=== PATIENT | female | born 1990 | race Caucasian/White ===

== ENCOUNTER 2021-12-06 09:05 | Outpatient (RCR) | payer OTHER | END 2021-12-07 | LOC: M PT 09:05 | PROVIDERS: ATTEND Student in an Organized Health Care Education/Training Program | DX: M25.511 Pain in right shoulder (principal) ==

== ENCOUNTER 2022-01-03 09:12 | Outpatient (RCR) | payer OTHER | END 2022-01-07 | LOC: M PT 09:12 | PROVIDERS: ATTEND Student in an Organized Health Care Education/Training Program | DX: M25.511 Pain in right shoulder (principal) ==

== ENCOUNTER → 2022-02-06 | Outpatient (RCR) | payer OTHER | LOC: M PT 01-10 08:45 | PROVIDERS: ATTEND Student in an Organized Health Care Education/Training Program | DX: M25.511 Pain in right shoulder (principal) ==

== ENCOUNTER 2022-02-14 13:45 | Outpatient (RCR) | payer OTHER | END 2022-03-09 | LOC: M PT 13:45 | PROVIDERS: ATTEND Student in an Organized Health Care Education/Training Program | DX: M25.511 Pain in right shoulder (principal) ==

== ENCOUNTER 2022-04-04 09:15 | Outpatient (RCR) | payer OTHER | END 2022-04-09 | LOC: M PT 09:15 | PROVIDERS: ATTEND Nurse Practitioner Primary Care | DX: M54.2 Cervicalgia (principal) ==

== ENCOUNTER 2022-05-01 09:15 | Outpatient (RCR) | payer OTHER | END 2022-05-07 | LOC: M PT 09:15 | PROVIDERS: ATTEND Nurse Practitioner Primary Care | DX: M54.2 Cervicalgia (principal) | CPT/HCPCS: 97110; 97140; G0283 ==

== ENCOUNTER 2022-06-03 09:15 | Outpatient (RCR) | payer OTHER | END 2022-06-07 | LOC: M PT 09:15 | PROVIDERS: ATTEND Nurse Practitioner Primary Care | DX: M54.2 Cervicalgia (principal) ==

== ENCOUNTER 2022-07-03 09:13 | Outpatient (RCR) | payer OTHER | END 2022-07-07 | LOC: M PT 09:13 | PROVIDERS: ATTEND Nurse Practitioner Primary Care | DX: M54.2 Cervicalgia (principal) ==

== ENCOUNTER → 2022-08-07 | Outpatient (RCR) | payer OTHER | LOC: M PT 07-17 10:40 | PROVIDERS: ATTEND Nurse Practitioner Primary Care | DX: M54.2 Cervicalgia (principal) ==

== ENCOUNTER 2022-08-14 09:12 | Outpatient (RCR) | payer OTHER | END 2022-09-06 | LOC: M PT 09:12 | PROVIDERS: ATTEND Nurse Practitioner Primary Care | DX: M54.2 Cervicalgia (principal) ==

== ENCOUNTER → 2022-10-11 | Outpatient (REF) | payer OTHER ==
[2022-10-11 17:03] LABS: APPEARANCE, URINE HAZY (CLEAR); BACTERIA, URINE AUTO 1+ (NEGATIVE); BILIRUBIN, URINE AUTO NEGATIVE (NEGATIVE); BLOOD, URINE BLOOD NEGATIVE (NEGATIVE); COLOR, URINE AMBER (YELLOW); GLUCOSE, URINE (UA) AUTO NEGATIVE (NEGATIVE); KETONE, URINE AUTO NEGATIVE (NEGATIVE); LEUKOCYTE ESTERASE, URINE AUTO 1+ (NEGATIVE); MUCUS, URINE SMALL (NEGATIVE); NITRITE, URINE AUTO POSITIVE (NEGATIVE); PROTEIN, URINE AUTO 1+ mg/dL (NEGATIVE); RBC, URINE AUTO 6 /HPF (0-3); SPECIFIC GRAVITY URINE AUTO 1.012 (1.002-1.035); SQUAMOUS EPITHELIAL CELL UR AU 3 /HPF (0-6); WBC, URINE AUTO 110 /HPF (0-3)
== END ==
LOC: M LAB REF 16:13
PROVIDERS: ATTEND Physician Assistant
DX: N39.0 Urinary tract infection, site not specified (principal)

== ENCOUNTER → 2024-02-16 | Outpatient (REF) | payer OTHER | LOC: M LAB REF 16:22 | PROVIDERS: ATTEND Physician Assistant Medical | DX: J02.9 Acute pharyngitis, unspecified (principal) ==